=== PATIENT | female | born 1975 | race Two or more races ===

== ENCOUNTER 2019-08-29 14:19 | Emergency (ER) | payer MEDICAID ==
[~2019-08-29] VITALS: Ht 162.6 cm; Wt 59.0 kg
[~2019-08-29 14:19] MED LIST: FLUO20TA29 PO; IBUP-1970 PO; TOPI50TA25 PO; TRAZADONE PO
[2019-08-29 14:20] VITALS: BP_SYST 131
--- NOTE | 2019-08-29 15:14 | NUR ---
Patient to ER bed 04 to gown for evaluation. Side rails up.
--- NOTE | 2019-08-29 15:25 | NUR ---
ER Dr. Kaur at bedside examining patient.
[2019-08-29 15:26] LABS: BASOPHILS # (AUTO) 0.1 K/uL (0.0-0.2); EOSINOPHILS # (AUTO) 0.1 K/uL (0.0-0.4); EOSINOPHILS % (AUTO) 1.1 % (0.0-4.0); HEMATOCRIT 40.8 % (36-48); HEMOGLOBIN 13.8 g/dL (12.0-16.0); LYMPHOCYTES # (AUTO) 1.7 K/uL (1.0-5.5); LYMPHOCYTES % (AUTO) 26.7 % (20.5-51.5); MEAN CORPUSCULAR HEMOGLOBIN 30 pg (27-31); MEAN CORPUSCULAR HGB CONC 34 % (32-36); MEAN CORPUSCULAR VOLUME 90 fL (79.0-98.0); MONOCYTES # (AUTO) 0.3 K/uL (0.0-1.0); MONOCYTES % (AUTO) 5.3 % (1.7-9.3); NEUTROPHILS # (AUTO) 4.3 K/uL (1.8-7.7); NEUTROPHILS % (AUTO) 65.9 % (40.0-70.0); PLATELET COUNT (AUTO) 244 K/uL (130-430); RED BLOOD CELL COUNT(AUTO) 4.55 MIL/uL (4.2-6.2); RED CELL DISTRIBUTION WIDTH 13.2 % (9.0-15.0); WHITE BLOOD COUNT (AUTO) 6.5 K/uL (4.8-10.8)
[2019-08-29] MEDS ORDERED: ONDANSETRON HCL 4 MG/2 ML VIAL IVP ONE (15:30)
[2019-08-29] MEDS ORDERED: MORPHINE 2 MG/ML INJ. SYRINGE IVP ONE (15:30)
[2019-08-29] MEDS ORDERED: NACL 0.9% 1,000 ML IV ONE (15:30)
--- NOTE | 2019-08-29 15:35 | NUR ---
Patient presented to ER c/o Left lower abd pain and nausea. Patient A&Ox4, afebrile, skin pink and warm, ambulatory to ER, pain 10/, nausea, denies V/D. Patient states pain started Friday, pain increased today prompting ER visit. Patient states she has left ovarian removal sx. Patient also c/o rectal bleed when she wiped after toileting today.
[2019-08-29 15:38] LABS: CREATININE 0.59 mg/dL (0.55-1.30)
[2019-08-29 15:41] LABS: PROTHROMBIN TIME 9.7 SECS (9.5-12.5)
[2019-08-29 15:44] LABS: ALBUMIN 3.9 g/dL (3.4-4.8); TOTAL BILIRUBIN 0.5 mg/dL (0.0-1.0)
--- NOTE | 2019-08-29 15:49 | NUR ---
Patient to Radiology with staff for CT via wheelchair.
[2019-08-29 15:51] LABS: BILIRUBIN,URINE NEGATIVE (NEGATIVE); BLOOD, URINE 1+ (NEGATIVE); CLARITY/URINE CLEAR (CLEAR); COLOR,URINE YELLOW (YELLOW); GLUCOSE,URINE NEGATIVE (NEGATIVE); KETONES,URINE NEGATIVE (NEGATIVE); LEUKOCYTE ESTERASE ,URINE NEGATIVE (NEGATIVE); NITRITE, URINE NEGATIVE (NEGATIVE); PH,URINE 7.5 (5.0-8.0); PROTEIN URINE NEGATIVE (NEGATIVE); UROBILINOGEN,URINE 0.2 (0.2-1.0)
[2019-08-29 16:06] LABS: BACTERIA,URINE RARE /HPF (None Seen); RBC,URINE 0-3 /HPF (0-3); WBC,URINE 0-3 /HPF (0-3)
[2019-08-29 16:07] LABS: MUCUS,URINE None Seen /LPF (None Seen)
--- NOTE | 2019-08-29 16:40 | NUR ---
ER at bedside examining patient.
[2019-08-29] MEDS ORDERED: KETOROLAC TROMETHAMINE 30 MG VIAL IVP ONE (17:00)
[2019-08-29] MEDS ORDERED: SODIUM PHOSPHATE,MONO-DIBASIC 133 ML ENEMA RC ONE (17:00)
--- NOTE | 2019-08-29 18:25 | NUR ---
CHRISTAL Lawler at bedside discussing lab results patient.
[2019-08-29 18:40] VITALS: BP_SYST 121
--- NOTE | 2019-08-29 18:40 | NUR ---
Patient given written and verbal discharge instructions and verbalizes understanding. ER MD discussed with patient the results and treatment provided. Patient in stable condition. ID arm band removed. IV catheter removed intact and dressing applied, no active bleeding. Rx of Colace & [place] given. Patient educated on pain management and to follow up with PMD. Pain Scale 4/10 tolerable for patient. Opportunity for questions provided and answered. Medication side effect fact sheet provided.
== END 2019-08-29 18:40 | disposition home or self-care (01) ==
LOC: SED 14:19
DX: K59.00 Constipation, unspecified (principal); Z88.0 Allergy status to penicillin; Z88.1 Allergy status to other antibiotic agents; Z79.899 Other long term (current) drug therapy
CPT/HCPCS: 36415; 74176; 80053; 81000; 81025; 83690; 85025; 85610; 86140; 87040; 96374; 96375; 99284; J1885; J2270; J2405; J7030

== ENCOUNTER 2023-06-18 20:45 | Emergency (ER) | payer MEDICAID ==
[~2023-06-18] VITALS: Ht 162.6 cm; Wt 70.3 kg
[~2023-06-18 20:45] MED LIST changes: +TOPI-255 PO; -TOPI50TA25 PO
[2023-06-18 20:57] VITALS: BP_SYST 149; PULSE 108; RESP 20; TEMP 97.6; O2SAT 97
[2023-06-18] MEDS ORDERED: MORPHINE 4 MG INJ. 4 MG/ML VIAL IVP ONE (21:30)
[2023-06-18] MEDS ORDERED: ONDANSETRON HCL 4 MG/2 ML VIAL IVP ONE (21:30)
[2023-06-18] MEDS ORDERED: KETOROLAC TROMETHAMINE 30 MG VIAL IVP ONE (21:30)
[2023-06-18] MEDS ORDERED: NACL 0.9% 1,000 ML IV ONE (21:30)
[2023-06-18 22:27] LABS: BILIRUBIN,URINE NEGATIVE (NEGATIVE); BLOOD, URINE 2+ (NEGATIVE); CLARITY/URINE CLOUDY (CLEAR); COLOR,URINE YELLOW (YELLOW); GLUCOSE,URINE NEGATIVE (NEGATIVE); KETONES,URINE NEGATIVE (NEGATIVE); LEUKOCYTE ESTERASE ,URINE 3+ (NEGATIVE); NITRITE, URINE NEGATIVE (NEGATIVE); PROTEIN URINE 3+ (NEGATIVE); UROBILINOGEN,URINE 0.2 (0.2-1.0)
[2023-06-18 22:29] LABS: BACTERIA,URINE MANY /HPF (None Seen); WBC,URINE >100 /HPF (0-3)
[2023-06-18 22:32] LABS: BASOPHILS # (AUTO) 0.1 K/uL (0.0-0.2); BASOPHILS % (AUTO) 0.7 % (0.0-2.0); EOSINOPHILS # (AUTO) 0.1 K/uL (0.0-0.4); EOSINOPHILS % (AUTO) 1.1 % (0.0-4.0); HEMATOCRIT 40.2 % (36-48); HEMOGLOBIN 13.6 g/dL (12.0-16.0); LYMPHOCYTES # (AUTO) 2.4 K/uL (1.0-5.5); LYMPHOCYTES % (AUTO) 25.8 % (20.5-51.5); MEAN CORPUSCULAR HEMOGLOBIN 30 pg (27-31); MEAN CORPUSCULAR HGB CONC 34 % (32-36); MEAN CORPUSCULAR VOLUME 87 fL (79.0-98.0); MONOCYTES # (AUTO) 0.8 K/uL (0.0-1.0); MONOCYTES % (AUTO) 8.3 % (1.7-9.3); NEUTROPHILS % (AUTO) 64.1 % (40.0-70.0); PLATELET COUNT (AUTO) 231 K/uL (130-430); RED CELL DISTRIBUTION WIDTH 12.8 % (9.0-15.0); WHITE BLOOD COUNT (AUTO) 9.4 K/uL (4.8-10.8)
[2023-06-18] MEDS ORDERED: KETOROLAC TROMETHAMINE 15 MG VIAL IVP ONE (23:15)
[2023-06-18] MEDS ORDERED: cefTRIAXone 1 GM in D5W 50 ML IV ONE (23:15)
[2023-06-18 23:28] LABS: CALCIUM 8.7 mg/dL (8.4-11.0); CREATININE 0.64 mg/dL (0.55-1.30); POTASSIUM 3.6 mmol/L (3.5-5.1)
[2023-06-18 23:33] LABS: ALBUMIN 3.6 g/dL (3.4-4.8); PROTHROMBIN TIME 10.5 SECS (9.5-12.5); TOTAL BILIRUBIN 0.4 mg/dL (0.0-1.0); TOTAL PROTEIN, SERUM 7.1 g/dL (6.4-8.3)
[2023-06-18] MEDS ORDERED: PHEN-727 PO (23:34)
[2023-06-18] MEDS ORDERED: CEPH-548 PO (23:34)
[2023-06-18] MEDS ORDERED: DICL50TA9 PO (23:34)
[2023-06-19] MEDS ORDERED: KETOROLAC TROMETHAMINE 30 MG VIAL ONE (00:21)
[2023-06-19] MEDS ORDERED: cefTRIAXone 1 GM VIAL ONE (00:24)
[2023-06-19 01:32] VITALS: BP_SYST 122; PULSE 78; RESP 18; TEMP 98.3; O2SAT 98
== END 2023-06-19 01:46 | disposition home or self-care (01) ==
LOC: SED 20:45
DX: R10.30 Lower abdominal pain, unspecified (principal); R11.0 Nausea; R30.0 Dysuria; E78.5 Hyperlipidemia, unspecified; Z88.8 Allergy status to other drugs, medicaments and biological substances; Z79.899 Other long term (current) drug therapy
CPT/HCPCS: 99285; 74176; 96375; 96361; 80053; 81000; 85025; 85610; 85730; 87040; 87086; 36415; 93005; 76376; 81025; 83605; 96365; 96376; J1885 ×2; J2405; J2270; J7030; J0696